=== PATIENT | female | born 1950 | race Caucasian/White ===

== ENCOUNTER 2016-08-30 23:21 | Emergency (ER) | payer MEDICARE, OTHER ==
[~2016-08-30] VITALS: Ht 160 cm; Wt 75.0 kg
[~2016-08-30 23:21] MED LIST: CLON0.5T PO; HYDR-3133 PO; HYDR-3516 PO; MELA5TAB15 PO; NEUR100C PO; PROZ40CA PO
[2016-08-30 23:27] VITALS: BP 148/65; PULSE 66; RESP 18; TEMP 97.9; O2SAT 95
[2016-08-30] MEDS ORDERED: SODIUM CHLORIDE 0.9% FLUSH 5 ML FLUSH IVF PRN (23:30)
[2016-08-30 23:42] VITALS: O2SAT 95
[2016-08-30 23:50] LABS: AUTOMATED NEUTROPHIL # 2.9 TH/MM3 (1.8-7.7); BASOPHIL # 0.1 TH/MM3 (0-0.2); BASOPHIL % 0.9 % (0.0-2.0); EOSINOPHIL # 0.2 TH/MM3 (0-0.4); HEMATOCRIT 34.6 % (35.0-46.0); HEMO FLAGS DIFF FINAL; LYMPH % 43.6 % (9.0-44.0); MEAN CELL VOLUME 90.7 FL (80.0-100.0); MEAN CORPUSCULAR HEMOGLOBIN 30.7 PG (27.0-34.0); MEAN CORPUSCULAR HGB CONC 33.8 % (32.0-36.0); MONO % 10.3 % (0.0-8.0); NEUT % 42.2 % (16.0-70.0); PLATELET COUNT 403 TH/MM3 (150-450); RED BLOOD COUNT 3.81 MIL/MM3 (4.00-5.30); RED CELL DISTRIBUTION WIDTH 15.9 % (11.6-17.2); WHITE BLOOD COUNT 6.9 TH/MM3 (4.0-11.0)
--- NOTE | 2016-08-31 00:01 | RADRPT ---
EXAM DATE/TIME: 08/30/2016 23:50 [facility] COMPARISON: CT BRAIN W/O CONTRAST, February 25, 2016, 9:42. INDICATIONS : Trauma; fall. RADIATION DOSE: 38.55 CTDIvol (mGy) MEDICAL HISTORY : Cardiovascular disease. Seizures. SURGICAL HISTORY : Appendectomy. Cholecystectomy.Tonsillectomy. ENCOUNTER: Initial ACUITY: 1 week PAIN SCALE: 2/10 LOCATION: cranial TECHNIQUE: Multiple contiguous axial images were obtained of the head. Using automated exposure control and adj ustment of the mA and/or kV according to patient size, radiation dose was kept as low as reasonably a chievable to obtain optimal diagnostic quality images. FINDINGS: CEREBRUM: There is mild cerebral atrophy. Ventricles are normal in size. No evidence of midline shift, mass le scott, hemorrhage or acute infarction. No extra-axial fluid collections are seen. POSTERIOR FOSSA: The cerebellum and brainstem demonstrate no acute finding. The 4th ventricle is midline. The cerebe llopontine angle is unremarkable. EXTRACRANIAL: Visualized sinuses demonstrate no acute finding. SKULL: The calvaria is intact. No evidence of skull fracture. CONCLUSION: Stable noncontrast head CT. No acute intracranial abnormality is identified. Anders Kimball MD on August 30, 2016 at 23:57 Board Certified Radiologist. This report was verified electronically.
--- NOTE | 2016-08-31 00:02 | RADRPT ---
EXAM DATE/TIME: 08/30/2016 23:44 [facility] COMPARISON: CHEST SINGLE AP, March 03, 2013, 3:47. INDICATIONS : Shortness of breath. MEDICAL HISTORY : None. SURGICAL HISTORY : Splenectomy. Appendectomy. ENCOUNTER: Initial ACUITY: 1 day PAIN SCORE: 0/10 LOCATION: Bilateral chest FINDINGS: Portable AP view of the chest demonstrates a normal-sized cardiac silhouette. No effusion, consolidat ion, or pneumothorax is visualized. The bones and soft tissues demonstrate no acute abnormality. The lungs are underinflated with atelectasis at the bases. CONCLUSION: Underinflated examination with mild atelectasis at the bases. Otherwise, no acute finding is apprecia sade. Anders Kimball MD on August 31, 2016 at 0:00 Board Certified Radiologist. This report was verified electronically.
--- NOTE | 2016-08-31 00:04 | RADRPT ---
EXAM DATE/TIME: 08/30/2016 23:47 [facility] COMPARISON: No previous studies available for comparison. INDICATIONS : Right flank and proximal femur pain from trauma sustained in a fall. MEDICAL HISTORY : None. SURGICAL HISTORY : Splenectomy. Appendectomy. ENCOUNTER: Initial ACUITY: 1 day PAIN SCORE: 10/10 LOCATION: Right flank FINDINGS: AP view of the pelvis demonstrates no acute fracture or dislocation. There are changes in the left pu bic bone suggestive of old healed fractures. Hip joints demonstrate no significant arthropathy. There are degenerative changes in the visualized inferior lumbar spine. No soft tissue abnormality is iden tified. CONCLUSION: No acute pelvis abnormality is identified. There are changes suggestive of old healed fractures in th e left pubic bone and there are degenerative changes in the visualized inferior lumbar spine. Anders Kimball MD on August 31, 2016 at 0:01 Board Certified Radiologist. This report was verified electronically.
[2016-08-31 00:06] LABS: BLOOD, URINE NEG (NEG); GLUCOSE,URINE NEG (NEG); KETONE, URINE NEG (NEG); NITRITE,URINE NEG (NEG); SQUAMOUS EPITHELIAL CELL URINE <1 /hpf (0-5); URINE COLOR LIGHT-YELLOW (YELLW/STRAW)
[2016-08-31 00:09] LABS: COMMENT (UR) CULT NOT INDICATED; CULTURE IF INDICATED CULT NOT INDICATED
[2016-08-31] MEDS ORDERED: KETOROLAC TROMETHAMINE 60 MG/2 ML (IM) VIAL IM ONE (00:15)
[2016-08-31 00:17] LABS: APTT (PATIENT) 24.9 SEC (24.3-30.1); PROTHROMBIN TIME - PATIENT 11.3 SEC (9.8-11.6)
[2016-08-31 00:44] LABS: POTASSIUM 5.5 MEQ/L (3.5-5.1)
[2016-08-31] MEDS ORDERED: MECLIZINE HCL 25 MG TAB PO ONE (01:00)
--- NOTE | 2016-08-31 01:01 | PD ---
HPI Chief Complaint: Fall Time Seen by Provider: 23:25 Travel History International Travel<30 days: No Contact w/Intl Traveler<30days: No Traveled to known affect area: No History of Present Illness HPI 66-year-old female presents with dizziness and leaning against the closet door and it giving out from her. She notes pain to her upper hip area on the right and had told the ambulance team she hurt on the other side as well. She states that she may have hit her head but she's not sure. She states she did not black out. She denies other concurrent complaints. In route the patient had told the ambulance team she was having a seizure but they had stated that she was not having any seizure activity during that time. Quality of pain is stabbing. Severity is moderate. Pain is worse with movement. She denies other modifying factors. PFSH Past Medical History Anxiety: Yes Depression: Yes Cancer: No Cardiovascular Problems: Yes Diminished Hearing: No Gastrointestinal Disorders: Yes Genitourinary: Yes Herniated Disk: Yes ("DEGENERATIVE DISC DISEASE") Musculoskeletal: Yes (HX SCIATICA, FX PELVIS: 1974) Neurologic: Yes Psychiatric: No Reproductive: No Respiratory: No Immunizations Current: Yes Seizures: Yes (PSYCHOGENIC ) Tetanus Vaccination: Unknown Influenza Vaccination: No ?: Not Menopausal: Yes : 2 Para: 2 Past Surgical History Abdominal Surgery: Yes Appendectomy: Yes Cholecystectomy: Yes Genitourinary Surgery: Yes (SURGERY FOR KIDNEY "BLOCKAGE") Oral Surgery: Yes (TONSILLECTOMY) Tonsillectomy: Yes Other Surgery: Yes ([place] SIDE FAC[place] [facility] [place] Social History Alcohol Use: Yes (RARELY) Tobacco Use: No (NEVER) Substance Use: No (DENIES) Allergies-Medications (Allergen,Severity, Reaction): Coded Allergies: Amoxil (Verified Allergy, Severe, GI PAIN, 08/30/16) Depakote (Verified Allergy, Severe, RASH/HIVES, 08/30/16) Reported Meds & Prescriptions Reported Meds & Active Scripts Active Meclizine (Meclizine HCl) 12.5 Mg Tab 12.5 Mg PO BID PRN Hydroxyzine HCl 25 Mg Tab 25 Mg PO QID PRN Prozac (Fluoxetine HCl) 40 Mg Cap 60 Cap PO DAILY Reported Melatonin 5 Mg Tab 5 Mg PO HS Hydrocodone-Acetaminophen 5-325 mg Tab 1 Tab PO TID PRN Clonazepam 0.5 Mg Tab 0.5 Mg PO HS Neurontin (Gabapentin) 100 Mg Cap 200 Mg PO QID Review of Systems Except as stated in HPI: all other systems reviewed are Neg Physical Exam Narrative GENERAL: Well-nourished, well-developed patient. SKIN: Warm and dry. HEAD: Normocephalic and atraumatic. EYES: No injection or drainage. ENT: No nasal drainage noted. NECK: Supple, trachea midline. CARDIOVASCULAR: Regular rate and rhythm RESPIRATORY: Breath sounds equal bilaterally. No accessory muscle use. GASTROINTESTINAL: Abdomen soft, non-tender, nondistended. EXTREMITIES: Pain with palpation of right upper without deformity or shortening , no pain with other joints , neurovascularly intact, no lacerations over, compartments soft. BACK: Nontender without obvious deformity. NEUROLOGICAL: Awake and alert. Moves all extremities, sensory grossly within normal limits. Normal speech. Data Data Last Documented VS Vital Signs Date Time Temp Pulse Resp B/P Pulse Ox O2 Delivery O2 Flow Rate FiO2 08/31/16 01:40 69 18 137/78 99 Room Air 08/30/16 23:27 97.9 Orders Basic Metabolic Panel (Bmp) (08/30/16 23:30) Complete Blood Count With Diff (08/30/16 23:30) Prothrombin Time / Inr (Pt) (08/30/16 23:30) Act Partial Throm Time (Ptt) (08/30/16 23:30) Urinalysis - C+S If Indicated (08/30/16 23:30) Chest, Single Ap (08/30/16 23:30) Pelvis, Ap Only (Routine) (08/30/16 23:30) Ct Brain W/O Iv Contrast(Rout) (08/30/16 23:30) Iv Access Insert/Monitor (08/30/16 23:30) Ecg Monitoring (08/30/16 23:30) Oximetry (08/30/16 23:30) Sodium Chloride 0.9% Flush (Ns Flush) (08/30/16 23:30) Ketorolac Inj (Toradol Inj) (08/31/16 00:15) Meclizine (Antivert) (08/31/16 01:00) Labs Laboratory Tests Test 08/30/16 23:40 White Blood Count 6.9 TH/MM3 Red Blood Count 3.81 MIL/MM3 Hemoglobin 11.7 GM/DL Hematocrit 34.6 % Mean Corpuscular Volume 90.7 FL Mean Corpuscular Hemoglobin 30.7 PG Mean Corpuscular Hemoglobin 33.8 % Concent Red Cell Distribution Width 15.9 % Platelet Count 403 TH/MM3 Mean Platelet Volume 8.5 FL Neutrophils (%) (Auto) 42.2 % Lymphocytes (%) (Auto) 43.6 % Monocytes (%) (Auto) 10.3 % Eosinophils (%) (Auto) 3.0 % Basophils (%) (Auto) 0.9 % Neutrophils # (Auto) 2.9 TH/MM3 Lymphocytes # (Auto) 3.0 TH/MM3 Monocytes # (Auto) 0.7 TH/MM3 Eosinophils # (Auto) 0.2 TH/MM3 Basophils # (Auto) 0.1 TH/MM3 CBC Comment DIFF FINAL Differential Comment Prothrombin Time 11.3 SEC Prothromb Time International 1.0 RATIO Ratio Activated Partial 24.9 SEC Thromboplast Time Urine Color LIGHT-YELLOW Urine Turbidity CLEAR Urine pH 8.0 Urine Specific [place] 1.005 Urine Protein NEG mg/dL Urine Glucose (UA) NEG mg/dL Urine Ketones NEG mg/dL Urine Occult Blood NEG Urine Nitrite NEG Urine Bilirubin NEG Urine Urobilinogen LESS THAN 2.0 MG/DL Urine Leukocyte Esterase NEG Urine RBC LESS THAN 1 /hpf Urine WBC LESS THAN 1 /hpf Urine Squamous Epithelial <1 /hpf Cells Microscopic Urinalysis Comment CULT NOT INDICATED Sodium Level 143 MEQ/L Potassium Level 5.5 MEQ/L Chloride Level 106 MEQ/L Carbon Dioxide Level 33.0 MEQ/L Anion Gap 4 MEQ/L Blood Urea Nitrogen 6 MG/DL Creatinine 1.02 MG/DL Estimat Glomerular Filtration 54 ML/MIN Rate Random Glucose 88 MG/DL Calcium Level 8.4 MG/DL [facility] Medical Decision Making Medical Screen Exam Complete: Yes Emergency Medical Condition: Yes Medical Record Reviewed: Yes (past history confirmed) Interpretation(s) CBC & BMP Diagram 08/30/16 23:40 CT brain no bleed, pelvic x-ray no fracture Differential Diagnosis Anemia, renal failure, intracranial, fracture, strain, vertigo, UTI, electrolyte abnormality..... Narrative Course Will check blood work, UA, trauma imaging and reevaluate Patient lives at home by herself and needs assistance with 2 people to walk and her cane and states she is feeling dizzy. Will dose with meclizine and reevaluate Patient denies any new complaints and states that they are feeling better and able to ambulate on second attempt without assistance. Patient happy with care , all questions answered. Patient knows that follow up is incumbent on them and to return to the emergency room immediately if new or worsening symptoms develop. Patient given strict return precautions, vitals reviewed and are normal , agrees to further workup as an outpatient. Diagnosis Primary Impression: Dizziness Additional Impression: Fall Qualified Code: W19.XXXA - Fall, initial encounter Patient Instructions: General Instructions Additional Instructions: return as needed, follow with primary thursday, meclizine as needed Med/Other Pt SpecificInfo: Prescription(s) given Scripts Meclizine 12.5 Mg Tab12.5 Mg PO BID PRN (VERTIGO) #15 TAB Ref 0 Prov:Leah Barriga MD 08/31/16 Disposition: 01 DISCHARGE HOME Condition: Serious Leah Barriga MD Aug 31, 2016 01:01
[2016-08-31] MEDS ORDERED: MECL12.574 PO (01:35)
[2016-08-31 01:40] VITALS: BP 137/78; PULSE 69; RESP 18; O2SAT 99
== END 2016-08-31 02:30 | disposition home or self-care (01) ==
LOC: NEPC 23:21
DX: R42 Dizziness and giddiness (principal); M25.551 Pain in right hip; W19.XXXA Unspecified fall, initial encounter
CPT/HCPCS: 70450; 71010; 72170; 80048; 81001; 85025; 85610; 85730; 96372; 99284; J1885

== ENCOUNTER 2016-09-19 15:51 | Emergency (ER) | payer OTHER ==
[~2016-09-19] VITALS: Ht 157.5 cm; Wt 72.0 kg
[~2016-09-19 15:51] MED LIST changes: +MECL12.574 PO
[2016-09-19 15:53] VITALS: BP 160/86; PULSE 60; RESP 16; TEMP 97.7; O2SAT 95
--- NOTE | 2016-09-19 17:38 | PD ---
HPI Chief Complaint: Pain: Acute or Chronic Time Seen by Provider: 17:35 Travel History International Travel<30 days: No Contact w/Intl Traveler<30days: No Traveled to known affect area: No History of Present Illness HPI Patient comes in for evaluation of right-sided sciatica pain. Patient reports pain has been ongoing for approximately 3 months. Patient states pain management was prescribed hydrocodone that is not controlling her pain. Patient denies any fevers, loss or change in bowel or bladder, numbness or tingling anywhere, trauma, or IV drug use. Patient states she was seen here previously for this and was given a shot of Toradol that seemed to help her symptoms somewhat but only lasted for a short time. PFSH Past Medical History Anxiety: Yes Depression: Yes Cancer: No Cardiovascular Problems: Yes Diminished Hearing: No Gastrointestinal Disorders: Yes Genitourinary: Yes Herniated Disk: Yes ("DEGENERATIVE DISC DISEASE") Musculoskeletal: Yes (HX SCIATICA, FX PELVIS: 1974) Neurologic: Yes Psychiatric: No Reproductive: No Respiratory: No Immunizations Current: Yes Seizures: Yes (PSYCHOGENIC ) Menopausal: Yes : 2 Para: 2 Past Surgical History Abdominal Surgery: Yes Appendectomy: Yes Cholecystectomy: Yes Genitourinary Surgery: Yes (SURGERY FOR KIDNEY "BLOCKAGE") Oral Surgery: Yes (TONSILLECTOMY) Tonsillectomy: Yes Other Surgery: Yes (LEFT SIDE FACIAL SURGERY: RECON[place]CTION S/P [facility] [place]: 1974) Social History Alcohol Use: Yes (RARELY) Tobacco Use: No (NEVER) Substance Use: No (DENIES) Allergies-Medications (Allergen,Severity, Reaction): Coded Allergies: Amoxil (Verified Allergy, Severe, GI PAIN, 09/19/16) Depakote (Verified Allergy, Severe, RASH/HIVES, 09/19/16) Reported Meds & Prescriptions Reported Meds & Active Scripts Active Medrol Dosepak (Methylprednisolone) 4 Mg Dspk 4 Mg PO DIRECTED Per Pharmacist direction Meclizine (Meclizine HCl) 12.5 Mg Tab 12.5 Mg PO BID PRN Hydroxyzine HCl 25 Mg Tab 25 Mg PO QID PRN Prozac (Fluoxetine HCl) 40 Mg Cap 60 Cap PO DAILY Reported Melatonin 5 Mg Tab 5 Mg PO HS Hydrocodone-Acetaminophen 5-325 mg Tab 1 Tab PO TID PRN Clonazepam 0.5 Mg Tab 0.5 Mg PO HS Neurontin (Gabapentin) 100 Mg Cap 200 Mg PO QID Review of Systems Except as stated in HPI: all other systems reviewed are Neg Physical Exam Narrative GENERAL: Well-developed, overly nourished, in no acute distress, and non-ill appearing. SKIN: Warm and dry. HEAD: Atraumatic. Normocephalic. EYES: Pupils equal and round. EOMI. No scleral icterus. No injection or drainage. ENT: No nasal bleeding or discharge. Mucous membranes pink and moist. NECK: Trachea midline. Supple. No nuclear rigidity. CARDIOVASCULAR: Dorsal pulses 2+: Tach, and equal bilaterally. Capillary refill less than 2 seconds. No pedal edema. RESPIRATORY: No accessory muscle use. No respiratory distress. MUSCULOSKELETAL: No obvious deformities. No clubbing. No cyanosis. No edema. Full range of motion. Hip: FROM and equal BL with passive flexion, extension, Abduction, Adduction, and internal/external rotation. Pulses equal BL distal to injury. Capillary refill less than 2 seconds distal to injury and equal BL. FROM distal to injury and equal BL. Strength distal to injury equal BL. NV intact distal to injury and equal BL. Plantar flexion and dorsal flexion equal BL. Dorsal pulses equal BL. Sensation intact to her first web space bilateral lower extremities. Patient reports increased pain with passive external rotation. NEUROLOGICAL: Awake and alert. No obvious cranial nerve deficits. Motor grossly within normal limits. Normal speech. PSYCHIATRIC: Appropriate mood and affect; insight and judgment normal. Data Data Last Documented VS Vital Signs Date Time Temp Pulse Resp B/P Pulse Ox O2 Delivery O2 Flow Rate FiO2 09/19/16 15:53 97.7 60 16 160/86 95 Orders Ketorolac Inj (Toradol Inj) (09/19/16 17:45) Dexamethasone Inj (Decadron Inj) (09/19/16 17:45) [facility] Medical Decision Making Medical Screen Exam Complete: Yes Emergency Medical Condition: No Differential Diagnosis Fracture, strain, sciatica, other Narrative Course The patient presented complaining of back pain with radiation down leg. There was no history of recent fall or trauma. There was no evidence to support genitourinary etiology. There is also no evidence to suggest vascular pathology such as AAA dissection. No fevers or other evidence to suspect infectious processes, abscess, osteomyelitis etc. The patients neurological exam is normal with normal motor and sensory. There is no saddle paresthesias reported and no bowel or bladder incontinence or retention. I suspect the pain is mechanical in nature with sciatica. Clinical suspicion, plan of care and management was discussed with the patient. The patient was instructed to follow up with their health care provider. The patient was also instructed to return if the pain worsened, changed, or developed weakness or bowel or bladder trouble. The patient agreed with plan. Patient in no obvious distress upon re-evaluation. Patient was asked if they wanted to speak to my attending, which the patient did not wish to do at this time. Any questions/concerns in reference to patient diagnosis/condition discussed and clarified prior to patient's discharge. Reinforced sheer importance of close follow up with patient's primary physician or primary care clinic. Instructed patient to return to ED immediately, if symptoms return/ worsen. Pt showed understanding of above instructions. Further instructions and recommendations were detailed in discharge paperwork. Pt ambulated without difficulty out of ED at discharge. Diagnosis Primary Impression: Sciatica of right side Patient Instructions: General Instructions, Sciatica (ED) Additional Instructions: Follow-up with your primary care physician, orthopedics, and/or pain management doctor in 3-5 days for reevaluation. Take all medication as prescribed. Return to the emergency department if symptoms get worse. Med/Other Pt SpecificInfo: Prescription(s) given Scripts Methylprednisolone Dosepak (Medrol Dosepak)4 Mg Dspk4 Mg PO DIRECTED #1 DSPK Ref 0 Per Pharmacist direction Prov:Pilar Lewis MD 09/19/16 Disposition: 01 DISCHARGE HOME Condition: Stable Tio Charles Sep 19, 2016 17:38
[2016-09-19] MEDS ORDERED: MEDR4PAK PO (17:39)
[2016-09-19] MEDS ORDERED: KETOROLAC TROMETHAMINE 60 MG/2 ML (IM) VIAL IM ONE (17:45)
[2016-09-19] MEDS ORDERED: DEXAMETHASONE SOD PHOS 4 MG/ML VIAL IM ONE (17:45)
== END 2016-09-19 18:01 | disposition home or self-care (01) ==
LOC: NEPB 15:51
DX: M54.31 Sciatica, right side (principal)
CPT/HCPCS: 96372; 99283; J1100; J1885

== ENCOUNTER 2016-11-22 03:57 | Emergency (ER) | payer OTHER ==
[~2016-11-22] VITALS: Ht 154.9 cm; Wt 74.1 kg
[~2016-11-22 03:57] MED LIST changes: +MEDR4PAK PO
[2016-11-22 04:06] VITALS: BP 158/85; PULSE 57; RESP 12; TEMP 98.3; O2SAT 92
--- NOTE | 2016-11-22 05:01 | PD ---
HPI Chief Complaint: Musculoskeletal Complaint Time Seen by Provider: 04:50 Travel History International Travel<30 days: No Contact w/Intl Traveler<30days: No Traveled to known affect area: No History of Present Illness HPI The patient is a 66-year-old female that has chronic back pain and is on disability for chronic back pain who comes in today wanting something for the pain. She states the pain goes down the right leg. She has had this pain for 5 -10 years. She was followed by Dr. Seals for this but apparently Dr. Seals, according to the patient, left a because he said dated she faked a seizure and told her not to do that anymore. The patient has a history of sciatic nerve pain. She took 400 mg of ibuprofen last night. She has no one to drive her home, she had planned to take a cab. She denies any bladder or bowel dysfunction. She denies any history or recent trauma. PFSH Past Medical History Anxiety: Yes Depression: Yes Cancer: No Cardiovascular Problems: Yes Diminished Hearing: No Gastrointestinal Disorders: Yes Genitourinary: Yes Herniated Disk: Yes ("DEGENERATIVE DISC DISEASE") Musculoskeletal: Yes (HX SCIATICA, FX PELVIS: 1974) Neurologic: Yes Psychiatric: No Reproductive: No Respiratory: No Immunizations Current: No Seizures: Yes (PSYCHOGENIC ) Tetanus Vaccination: Unknown Influenza Vaccination: No ?: Not Menopausal: Yes : 2 Para: 2 Past Surgical History Abdominal Surgery: Yes Appendectomy: Yes Cholecystectomy: Yes Genitourinary Surgery: Yes (SURGERY FOR KIDNEY "BLOCKAGE") Oral Surgery: Yes (TONSILLECTOMY) Tonsillectomy: Yes Other Surgery: Yes ([place] SIDE FACIAL [place] [facility] [place] Social History Alcohol Use: Yes (DRINKS WINE OCCASIONALLY) Tobacco Use: No (NEVER) Substance Use: No (DENIES) Allergies-Medications (Allergen,Severity, Reaction): Coded Allergies: Amoxil (Verified Allergy, Severe, GI PAIN, 11/22/16) Depakote (Verified Allergy, Severe, RASH/HIVES, 11/22/16) Reported Meds & Prescriptions Reported Meds & Active Scripts Active Meclizine (Meclizine HCl) 12.5 Mg Tab 12.5 Mg PO BID PRN Hydroxyzine HCl 25 Mg Tab 25 Mg PO QID PRN Prozac (Fluoxetine HCl) 40 Mg Cap 60 Cap PO DAILY Reported Melatonin 5 Mg Tab 5 Mg PO HS Hydrocodone-Acetaminophen 5-325 mg Tab 1 Tab PO TID PRN Clonazepam 0.5 Mg Tab 0.5 Mg PO HS Neurontin (Gabapentin) 100 Mg Cap 200 Mg PO QID Review of Systems Except as stated in HPI: all other systems reviewed are Neg Physical Exam Narrative GENERAL: Well-nourished, alert and oriented, obese patient in slight apparent distress with her chronic back pain. Her vital signs show blood pressure 158/ 85 but are otherwise normal. SKIN: Focused skin assessment warm/dry. HEAD: Normocephalic. EYES: No scleral icterus. No injection or drainage. NECK: Supple, trachea midline. No JVD or lymphadenopathy. CARDIOVASCULAR: Regular rate and rhythm without murmurs, gallops, or rubs. RESPIRATORY: Breath sounds equal bilaterally. No accessory muscle use. GASTROINTESTINAL: Abdomen soft, non-tender, nondistended. MUSCULOSKELETAL: No cyanosis, or edema. There is tenderness along the lumbar spine diffusely and on the right side of the lumbar spine. Straight leg raising is positive at 25. Deep tendon reflexes are +1 bilaterally both patella Achilles. Pinprick is normal. BACK: Nontender without obvious deformity. No CVA tenderness. Data Data Last Documented VS Vital Signs Date Time Temp Pulse Resp B/P Pulse Ox O2 Delivery O2 Flow Rate FiO2 11/22/16 04:06 98.3 57 12 158/85 92 MDM Medical Decision Making Medical Screen Exam Complete: Yes Emergency Medical Condition: Yes Medical Record Reviewed: Yes Differential Diagnosis Herniated nucleus pulposus, sciatic nerve pain, compression fracture Narrative Course The patient has chronic sciatic nerve pain. Unfortunately, we cannot give her any narcotics because she has no way to go home other than a cab. The patient claims that she gets seizures with the pain. She is told to follow-up with Dr. Seals. Diagnosis Primary Impression: Sciatica of right side Additional Instructions: Follow-up with Dr. Seals. He can give you pain medications because he can follow you. Med/Other Pt SpecificInfo: No Change to Meds Disposition: 01 DISCHARGE HOME Condition: Stable Jose Castro MD Nov 22, 2016 05:01
[2016-11-22] MEDS ORDERED: ORPHENADRINE INJ 60 MG/2 ML AMP IM ONE (05:15)
[2016-11-22] MEDS ORDERED: KETOROLAC TROMETHAMINE 60 MG/2 ML (IM) VIAL IM ONE (05:15)
== END 2016-11-22 05:19 | disposition home or self-care (01) ==
LOC: PHED 03:57
DX: M54.31 Sciatica, right side (principal)
CPT/HCPCS: 96372; 99283; J1885; J2360

== ENCOUNTER 2017-02-02 13:55 | Emergency (ER) | payer OTHER ==
[~2017-02-02] VITALS: Ht 157.5 cm; Wt 70.0 kg
[~2017-02-02 13:55] MED LIST changes: -MEDR4PAK PO
[2017-02-02 14:02] VITALS: BP 153/65; PULSE 64; RESP 18; TEMP 98; O2SAT 95
[2017-02-02] MEDS ORDERED: ACETAMINOPHEN/HYDROcodone 325 MG/5 MG TAB PO ONE (14:15)
[2017-02-02] MEDS ORDERED: ORPHENADRINE CITRATE 100 MG SUSTAINED RELEASE TAB PO ONE (14:15)
[2017-02-02] MEDS ORDERED: IBUPROFEN 400 MG TAB PO ONE (14:15)
[2017-02-02] MEDS ORDERED: NORC5TAB PO (14:22)
[2017-02-02] MEDS ORDERED: ORPH100T99 PO (14:22)
[2017-02-02] MEDS ORDERED: IBUP400T20 PO (14:22)
--- NOTE | 2017-02-02 14:22 | PD ---
HPI Chief Complaint: Pain: Acute or Chronic Time Seen by Provider: 14:00 Travel History International Travel<30 days: No Contact w/Intl Traveler<30days: No Traveled to known affect area: No History of Present Illness HPI The patient is a 66-year-old female who presents to the emergency department for back pain with radiculopathy. The patient has a long-standing history of sciatica with back pain that radiates down to the right gluteal area and down the right leg to the heel, has been present for over one year. The patient was being followed by her pain interventional list and primary physician , Dr. Seals. However, she states she knows longer sees Arnel because she was "laughing at her "after she had a pseudoseizure in the office. The patient does complain of pain located in the right gluteal area that radiates down the right leg, worse with certain movements and positions, alleviated at rest and by lying supine or on the left side with her legs flexed. She denies any urinary or fecal incontinence, denies any acute weakness or numbness of lower extremities. The patient states her family resides in [place] and they called the ambulance today because she was having pain at home and refuses to see a physician. The patient does not currently have a primary physician and states she has to take the bus everywhere for transportation. PFSH Past Medical History Anxiety: Yes Depression: Yes Cancer: No Cardiovascular Problems: Yes Diminished Hearing: No Gastrointestinal Disorders: Yes Genitourinary: Yes Herniated Disk: Yes ("DEGENERATIVE DISC DISEASE") Musculoskeletal: Yes (HX SCIATICA, FX PELVIS: 1974) Neurologic: Yes Psychiatric: No Reproductive: No Respiratory: No Immunizations Current: No Seizures: Yes (PSYCHOGENIC ) ?: Not Menopausal: Yes : 2 Para: 2 Past Surgical History Abdominal Surgery: Yes Appendectomy: Yes Cholecystectomy: Yes Genitourinary Surgery: Yes (SURGERY FOR KIDNEY "BLOCKAGE") Oral Surgery: Yes (TONSILLECTOMY) Tonsillectomy: Yes Other Surgery: Yes (LEFT SIDE FACIAL SURGERY: [place] [facility] [place]) Social History Alcohol Use: Yes (DRINKS WINE OCCASIONALLY) Tobacco Use: No (NEVER) Substance Use: No (DENIES) Allergies-Medications (Allergen,Severity, Reaction): Coded Allergies: Amoxil (Verified Allergy, Severe, GI PAIN, 02/02/17) Depakote (Verified Allergy, Severe, RASH/HIVES, 02/02/17) Reported Meds & Prescriptions Reported Meds & Active Scripts Active Reported Neurontin (Gabapentin) 100 Mg Cap 600 Mg PO QID Review of Systems Except as stated in HPI: all other systems reviewed are Neg Cardiovascular: No: Chest Pain or Discomfort Respiratory: No: Shortness of Breath Gastrointestinal: No: Nausea, Vomiting Musculoskeletal: Positive: Pain Skin: No Rash Neurologic: No: Paresthesia, Sensory Disturbance Physical Exam Narrative GENERAL: Awake, alert, pleasant 66-year-old female who appears her stated age is in no acute respiratory distress. SKIN: Focused skin assessment warm/dry. HEAD: Atraumatic. Normocephalic. EYES: Pupils equal and round. No scleral icterus. No injection or drainage. ENT: No nasal bleeding or discharge. Poor dentition. NECK: Trachea midline. No JVD. CARDIOVASCULAR: Regular rate and rhythm. No murmur appreciated. RESPIRATORY: No accessory muscle use. Clear to auscultation. Breath sounds equal bilaterally. GASTROINTESTINAL: Abdomen soft, non-tender, nondistended. Back: No tenderness over the mid thoracic or lumbar vertebrae. Mild tenderness of the right gluteal area, patient was examined in the presence of a female nurse. MUSCULOSKELETAL: No obvious deformities. No clubbing. No cyanosis. No edema. Positive straight leg on the right at 30. Flexion of the hip and knee improves the pain. Plantar flexion is 5 out of 5 bilateral, flexion right great toes 5/5, and flexion the right hip is 5/5. Positive right dorsalis pedal pulse. NEUROLOGICAL: Awake and alert. No obvious cranial nerve deficits. Motor grossly within normal limits. Normal speech. Sensation is intact of the medial , lateral, dorsal aspect of the right foot. PSYCHIATRIC: Appropriate mood and affect; insight and judgment normal. Data Data Last Documented VS Vital Signs Date Time Temp Pulse Resp B/P Pulse Ox O2 Delivery O2 Flow Rate FiO2 02/02/17 14:02 98.0 64 18 153/65 95 Orders Acetamin-Hydrocod 325-5 Mg ([place] 5-325 (02/02/17 14:15) Ibuprofen (Motrin) (02/02/17 14:15) Orphenadrine Sr (Norflex Cr) (02/02/17 14:15) MDM Medical Decision Making Medical Screen Exam Complete: Yes Emergency Medical Condition: Yes Medical Record Reviewed: Yes Differential Diagnosis Differential diagnosis includes sciatica, back pain with radiculopathy, degenerative disc disease, herniated disc, osteoarthritis, Narrative Course The patient was administered [place], Norflex, and ibuprofen. She will be discharged home on medications, is advised to follow-up with her primary physician, she is also advised she may benefit from outpatient physical therapy in regards to her sciatica. Diagnosis Primary Impression: Sciatica of right side Patient Instructions: General Instructions Additional Instructions: Medications as directed. Follow-up with a primary physician in regards to outpatient physical therapy for chronic right sciatica. Apply ice and/or heat to the affected area. Activity as tolerated. Med/Other Pt SpecificInfo: Prescription(s) given Scripts Hydrocodone-Acetaminophen ([place])5-325 mg Tab1 Tab PO Q6H PRN (PAIN) #12 TAB Ref 0 Prov:Bryan Hernandez MD 02/02/17 Orphenadrine ER 12 HR (Orphenadrine CR)100 Mg Hzw450 Mg PO Q12HR #20 TAB Ref 0 Prov:Bryan Hernandez MD 02/02/17 Ibuprofen 400 Mg [id number] Mg PO Q6H PRN (PAIN SCALE 1 TO 10) #20 TAB Ref 0 Prov:Bryan Hernandez MD 02/02/17 Disposition: 01 DISCHARGE HOME Condition: Stable Bryan Hernandez MD Feb 02, 2017 14:22
[2017-02-02 15:11] VITALS: BP 158/80; PULSE 58; RESP 16; O2SAT 96
== END 2017-02-02 15:12 | disposition home or self-care (01) ==
LOC: PHED 13:55
DX: M54.31 Sciatica, right side (principal); Z86.59 Personal history of other mental and behavioral disorders; Z86.79 Personal history of other diseases of the circulatory system; Z87.19 Personal history of other diseases of the digestive system; Z87.448 Personal history of other diseases of urinary system; Z87.39 Personal history of other diseases of the musculoskeletal system and connective tissue; Z86.69 Personal history of other diseases of the nervous system and sense organs
CPT/HCPCS: 99284

== ENCOUNTER 2017-03-16 22:51 | Emergency (ER) | payer MEDICAID, OTHER ==
[~2017-03-16] VITALS: Ht 157.5 cm; Wt 70.4 kg
[2017-03-16 22:51] VITALS: BP 182/71; PULSE 60; RESP 16; TEMP 97.4; O2SAT 96
[~2017-03-16 22:51] MED LIST changes: -CLON0.5T PO; -HYDR-3133 PO; -HYDR-3516 PO; +IBUP400T20 PO; -MECL12.574 PO; -MELA5TAB15 PO; +NORC5TAB PO; +ORPH100T99 PO; -PROZ40CA PO
[2017-03-16] MEDS ORDERED: SODIUM CHLOR 0.9% 1000 ML INJ 1,000 ML IV SCH (23:24)
[2017-03-16] MEDS ORDERED: SODIUM CHLORIDE 0.9% FLUSH 10 ML FLUSH IV FLUSH PRN (23:30)
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
[2017-03-16 23:47] LABS: BLOOD, URINE NEG (NEG); GLUCOSE,URINE NEG (NEG); KETONE, URINE TRACE mg/dL (NEG); NITRITE,URINE NEG (NEG); PH, URINE 5.5 (5.0-8.5)
[2017-03-16 23:47] LABS: AUTOMATED NEUTROPHIL # 2.7 TH/MM3 (1.8-7.7); BASOPHIL # 0.1 TH/MM3 (0-0.2); BASOPHIL % 1.4 % (0.0-2.0); EOSINOPHIL # 0.1 TH/MM3 (0-0.4); EOSINOPHIL % 1.5 % (0.0-4.0); HEMO FLAGS DIFF FINAL; LYMPH % 51.1 % (9.0-44.0); LYMPHOCYTE # 3.7 TH/MM3 (1.0-4.8); MEAN CORPUSCULAR HEMOGLOBIN 31.8 PG (27.0-34.0); MEAN CORPUSCULAR HGB CONC 32.4 % (32.0-36.0); MONO % 9.3 % (0.0-8.0); NEUT % 36.7 % (16.0-70.0); PLATELET COUNT 414 TH/MM3 (150-450); RED BLOOD COUNT 4.18 MIL/MM3 (4.00-5.30); RED CELL DISTRIBUTION WIDTH 14.1 % (11.6-17.2); WHITE BLOOD COUNT 7.3 TH/MM3 (4.0-11.0)
[2017-03-16 23:55] LABS: MUCUS URINE MOD /lpf (OCC); URINE COLOR AMBER (YELLW/STRAW)
[2017-03-16 23:56] LABS: BACTERIA, URINE FEW /hpf; CALCIUM OXALATE CRYSTALS,URINE FEW /hpf; RBC, URINE 0-3 /hpf (0-3); SQUAMOUS EPITHELIAL CELL URINE > 8 /hpf (0-5)
[2017-03-16 23:57] LABS: COMMENT (UR) CULT NOT INDICATED; CULTURE IF INDICATED CULT NOT INDICATED
[2017-03-16 23:57] LABS: CHLORIDE 104 MEQ/L (98-107); POTASSIUM 3.7 MEQ/L (3.5-5.1); SODIUM (NA) 140 MEQ/L (136-145)
[2017-03-17 00:01] LABS: ANION GAP 6 MEQ/L (5-15); BICARBONATE 30.5 MEQ/L (21.0-32.0); BLOOD UREA NITROGEN 11 MG/DL (7-18)
[2017-03-17 00:03] LABS: ALT (GPT) 15 U/L (10-53); AST (GOT) 21 U/L (15-37)
[2017-03-17 00:04] LABS: GLOMERULAR FILTRATION RATE 56 ML/MIN (>89)
[2017-03-17 00:05] LABS: TOTAL BILIRUBIN ADULT 0.5 MG/DL (0.2-1.0)
[2017-03-17 00:06] LABS: ALKALINE PHOSPHATASE 122 U/L (45-117)
[2017-03-17 00:40] VITALS: BP 171/72; PULSE 59; O2SAT 99
[2017-03-17] MEDS ORDERED: ZOFR4TAB PO (01:19)
== END 2017-03-17 01:47 | disposition home or self-care (01) ==
LOC: PHED 23:13
DX: K52.9 Noninfective gastroenteritis and colitis, unspecified (principal)
CPT/HCPCS: 80053; 81001; 83690; 85025; 99283; J7030

== ENCOUNTER 2017-06-27 03:28 | Emergency (ER) | payer OTHER ==
[~2017-06-27] VITALS: Ht 157.5 cm; Wt 70.0 kg
[~2017-06-27 03:28] MED LIST changes: -IBUP400T20 PO; -NORC5TAB PO; -ORPH100T99 PO; +ZOFR4TAB PO
[2017-06-27 03:41] VITALS: BP 128/60; PULSE 71; RESP 20; TEMP 98.1; O2SAT 93
--- NOTE | 2017-06-27 03:53 | PD ---
HPI Chief Complaint: Abdominal Pain Time Seen by Provider: 03:46 Travel History International Travel<30 days: No Contact w/Intl Traveler<30days: No Traveled to known affect area: No History of Present Illness HPI 67 year-old female presents to the emergency department from home by EMS transport for complaint of sinus pressure drainage, ear pain, cough, nausea, vomiting, abdominal pain, and diarrhea. He has had symptoms for the past several days. Symptoms were worsening tonight. Patient states she was unable to get in to see her primary care provider. Patient has history of previous appendectomy cholecystectomy and post traumatic splenectomy. Patient denies hematemesis coffee-ground emesis melanoma hematochezia. Patient denies any dietary indiscretion well water ingestion or foreign travel. Patient rates her pain 10 over 10 intensity. Patient is unable to identify exacerbating or alleviating factors. The patient rates her ear pain and abdominal pain 10 over 10 in intensity. PFSH Past Medical History Narrative Medical Anxiety depression hypertension appendectomy cholecystectomy hysterectomy bowel obstruction seizure; alcohol use; nursing notes reviewed Anxiety: Yes Depression: Yes Cancer: No Cardiovascular Problems: Yes Diminished Hearing: No Gastrointestinal Disorders: Yes GERD: Yes Genitourinary: Yes Herniated Disk: Yes ("DEGENERATIVE DISC DISEASE") Musculoskeletal: Yes (HX SCIATICA, FX PELVIS: 1974) Neurologic: Yes Psychiatric: No Reproductive: No Respiratory: No Immunizations Current: No Seizures: Yes (PSYCHOGENIC ) ?: Not LMP: POST MENOPAUSAL Menopausal: Yes : 2 Para: 2 Past Surgical History Abdominal Surgery: Yes Appendectomy: Yes Cholecystectomy: Yes Genitourinary Surgery: Yes (SURGERY FOR KIDNEY "BLOCKAGE") Oral Surgery: Yes Tonsillectomy: Yes Other Surgery: Yes (LEFT SIDE F[place]IAL [place] [facility] [place] Social History Alcohol Use: Yes (DRINKS WINE OCCASIONALLY) Tobacco Use: No (NEVER) Substance Use: No (DENIES) Allergies-Medications (Allergen,Severity, Reaction): Coded Allergies: amoxicillin (Unverified Allergy, Severe, GI PAIN, 06/27/17) divalproex sodium (Unverified Allergy, Severe, RASH/HIVES, 06/27/17) Reported Meds & Prescriptions Reported Meds & Active Scripts Active Zofran Odt (Ondansetron Odt) 4 Mg Tab 4 Mg SL Q6HR PRN Reported Neurontin (Gabapentin) 100 Mg Cap 600 Mg PO QID Review of Systems Except as stated in HPI: all other systems reviewed are Neg General / Constitutional: No: Fever, Chills HENT: Positive: Sore Throat, Earache, No: Congestion Cardiovascular: No: Chest Pain or Discomfort Respiratory: No: Shortness of Breath Gastrointestinal: Positive: Nausea, Vomiting, Diarrhea, Abdominal Pain Genitourinary: No: Dysuria Musculoskeletal: No: Myalgias, Arthralgias Skin: No Rash Neurologic: No: Weakness Psychiatric: No: Anxiety Hematologic/Lymphatic: No: Easy Bruising Physical Exam Narrative GENERAL: Well-developed well-nourished female in no obvious distress SKIN: Warm and dry. HEAD: Normocephalic. EYES: No scleral icterus. No injection or drainage. ENT: Mucous membranes dry airway is patent poor dentition NECK: Supple, trachea midline. No JVD or lymphadenopathy. CARDIOVASCULAR: Regular rate and rhythm without murmurs, gallops, or rubs. RESPIRATORY: Breath sounds equal bilaterally. No accessory muscle use. GASTROINTESTINAL: Abdomen soft, non-tender, nondistended. MUSCULOSKELETAL: No cyanosis, or edema. BACK: Nontender without obvious deformity. No CVA tenderness. Data Data Last Documented VS Vital Signs Date Time Temp Pulse Resp B/P (MAP) Pulse Ox O2 Delivery O2 Flow Rate FiO2 06/27/17 06:35 16 94 Room Air 06/27/17 04:35 66 06/27/17 03:41 98.1 Orders Orders Complete Blood Count With Diff (06/27/17 03:46) Comprehensive Metabolic Panel (06/27/17 03:46) Lipase (06/27/17 03:46) Lactic Acid (06/27/17 03:46) Urinalysis - C+S If Indicated (06/27/17 03:46) Iv Access Insert/Monitor (06/27/17 03:46) Ecg Monitoring (06/27/17 03:46) Oximetry (06/27/17 03:46) Ondansetron Inj (Zofran Inj) (06/27/17 04:00) Sodium Chloride 0.9% Flush (Ns Flush) (06/27/17 04:00) Electrocardiogram (06/27/17 03:46) Chest, Single Ap (06/27/17 03:46) Sodium Chlorid 0.9% 500 Ml Inj (Ns 500 M (06/27/17 04:00) Ct Abd/Pel W Iv Contrast(Rout) (06/27/17 ) Ct Brain W/O Iv Contrast(Rout) (06/27/17 ) Troponin I (06/27/17 04:10) Iohexol 350 Inj (Omnipaque 350 Inj) (06/27/17 05:45) Labs Laboratory Tests Test 06/27/17 04:10 06/27/17 06:28 White Blood Count 11.4 TH/MM3 Red Blood Count 4.30 MIL/MM3 Hemoglobin 13.6 GM/DL Hematocrit 41.4 % Mean Corpuscular Volume 96.3 FL Mean Corpuscular Hemoglobin 31.8 PG Mean Corpuscular Hemoglobin Concent 33.0 % Red Cell Distribution Width 13.0 % Platelet Count 443 TH/MM3 Mean Platelet Volume 7.3 FL Neutrophils (%) (Auto) 70.0 % Lymphocytes (%) (Auto) 19.1 % Monocytes (%) (Auto) 9.3 % Eosinophils (%) (Auto) 1.1 % Basophils (%) (Auto) 0.5 % Neutrophils # (Auto) 7.9 TH/MM3 Lymphocytes # (Auto) 2.2 TH/MM3 Monocytes # (Auto) 1.1 TH/MM3 Eosinophils # (Auto) 0.1 TH/MM3 Basophils # (Auto) 0.1 TH/MM3 CBC Comment DIFF FINAL Differential Comment Blood Urea Nitrogen 9 MG/DL Creatinine 0.93 MG/DL Random Glucose 118 MG/DL Total Protein 8.3 GM/DL Albumin 3.4 GM/DL Calcium Level 8.9 MG/DL Alkaline Phosphatase 149 U/L Aspartate Amino Transf (AST/SGOT) 20 U/L Alanine Aminotransferase (ALT/SGPT) 21 U/L Total Bilirubin 0.7 MG/DL Sodium Level 139 MEQ/L Potassium Level 3.5 MEQ/L Chloride Level 103 MEQ/L Carbon Dioxide Level 29.3 MEQ/L Anion Gap 7 MEQ/L Estimat Glomerular Filtration Rate 60 ML/MIN Lactic Acid Level 0.8 mmol/L Troponin I LESS THAN 0.02 NG/ML Lipase 105 U/L Urine pH 5.5 Urine Protein NEG mg/dL Urine Glucose (UA) NEG mg/dL Urine Ketones NEG mg/dL Urine Occult Blood NEG Urine Nitrite NEG Urine Bilirubin NEG Urine Leukocyte Esterase NEG MDM Medical Decision Making Medical Screen Exam Complete: Yes Emergency Medical Condition: Yes Medical Record Reviewed: Yes Interpretation(s) EKG sinus rhythm rate 63 QS inferiorly age-indeterminate no acute ST elevation or injury pattern change or ectopy noted; no change from prior comparison ekg's CT abd/pel: CONCLUSION: 1. No acute findings identified within the abdomen or pelvis. 2. Stable hypodense 2.4 cm right uterine mass most likely representing a fibroid. 3. Ectatic infrarenal aorta measuring up to 2.6 cm. Anders Kimball MD on June 27, 2017 at 6:10 Board Certified Radiologist. This report was verified electronically. ct brain w/o: No acute abnormality per reading radiologist Dr. Tarango Last Impressions Chest X-Ray 06/27/17 0346 Signed Impressions: Service Date/Time: Tuesday, June 27, 2017 03:58 - CONCLUSION: No acute cardiopulmonary abnormality is identified. Anders Kimball MD Head CT 06/27/17 0000 Signed Impressions: Service Date/Time: Tuesday, June 27, 2017 05:37 - CONCLUSION: Stable noncontrast head CT. No acute intracranial abnormality is identified. Anders Kimball MD CBC & BMP Diagram 06/27/17 04:10 Total Protein 8.3 H, Albumin 3.4, Calcium Level 8.9, Alkaline Phosphatase 149 H , Aspartate Amino Transf (AST/SGOT) 20, Alanine Aminotransferase (ALT/SGPT) 21, Total Bilirubin 0.7 Vital Signs Date Time Temp Pulse Resp B/P (MAP) Pulse Ox O2 Delivery O2 Flow Rate FiO2 06/27/17 04:35 66 18 107/51 (69) 93 Room Air 06/27/17 03:41 98.1 71 20 128/60 (82) 93 lactic acid: 0.8, not elevated Troponin I: Less than 0.02, not elevated Differential Diagnosis Gastroenteritis viral syndrome bowel obstruction sinusitis bronchitis pneumonia dehydration electrolyte disturbance food borne illness Narrative Course IV access obtained specimens collected and sent for resulting patient placed on geriatric nurse assistant with continuous pulse oximetry; patient administered 500 ml bolus of normal saline and Zofran 4 mg IV with maintenance IV fluids 1 25 cc per hour At 6:25 AM patient is clinically improved; lab values grossly within normal range; CT brain noncontrast reveals no acute abnormality and CT abdomen and pelvis reveals no acute abnormality; no evidence for small bowel obstruction or partial small bowel obstruction As 7 AM patient reports she feels markedly improved is aware that she will be given a prescription for nausea vomiting and requests antibiotic for her ear pain patient with recent respiratory infection symptoms and will be covered with Keflex Diagnosis Primary Impression: Gastroenteritis Additional Impression: Otalgia of right ear Referrals: Primary Care Physician call for appointment Patient Instructions: General Instructions Additional Instructions: Clear liquid diet for next 12-24 hours advance as tolerated to bland/Anni diet then advance to regular diet avoid fried and fatty foods Increase fluid hydration Take chronic medications as chronically prescribed Takes Zofran as prescribed as needed for nausea and/or vomiting Take acetaminophen/Tylenol every 4 hours as needed for fever 100.4F or greater or for minor pain Take ibuprofen/Advil/Motrin per package instructions as tolerated for fever 100.4F or greater or for pain associated with inflammation Return to the emergency department for any concerns or change in conditions Follow up with her primary care provider Med/Other Pt SpecificInfo: Prescription(s) given Scripts Cephalexin (Keflex) 500 Mg Capsule 500 MG PO Q6H for Infection for 7 Days, #28 CAP 0 Refills Prov: Shaye Estrada MD 06/27/17 Ondansetron Odt (Zofran Odt) 4 Mg Tab 4 MG SL Q6HR Y for Nausea/Vomiting, #10 TAB 0 Refills Prov: Shaye Estrada MD 06/27/17 Disposition: 01 DISCHARGE HOME Condition: Stable Shaye Estrada MD Jun 27, 2017 03:53
[2017-06-27] MEDS ORDERED: ONDANSETRON HCL 4 MG/2 ML VIAL IVP ONE (04:00)
[2017-06-27] MEDS ORDERED: SODIUM CHLORID 0.9% 500 ML INJ 500 ML IV ONE (04:00)
[2017-06-27] MEDS ORDERED: SODIUM CHLORIDE 0.9% FLUSH 10 ML FLUSH IV FLUSH PRN (04:00)
--- NOTE | 2017-06-27 04:09 | RADRPT ---
EXAM DATE/TIME: 06/27/2017 03:58 [facility] COMPARISON: CHEST SINGLE AP, August 30, 2016, 23:44. INDICATIONS : Free air, abdomen pain. MEDICAL HISTORY : Cardiovascular disease. Seizures. SURGICAL HISTORY : Appendectomy. Cholecystectomy.Tonsillectomy ENCOUNTER: Initial ACUITY: 1 day PAIN SCORE: 10/10 LOCATION: Bilateral chest FINDINGS: Portable AP view of the chest demonstrates a normal-sized cardiac silhouette. No effusion, consolidat ion, or pneumothorax is visualized. The bones and soft tissues demonstrate no acute abnormality. Ther e is mild atelectasis at the lung bases. CONCLUSION: No acute cardiopulmonary abnormality is identified. Anders Kimball MD on June 27, 2017 at 4:07 Board Certified Radiologist. This report was verified electronically.
[2017-06-27 04:24] LABS: AUTOMATED NEUTROPHIL # 7.9 TH/MM3 (1.8-7.7); BASOPHIL # 0.1 TH/MM3 (0-0.2); BASOPHIL % 0.5 % (0.0-2.0); EOSINOPHIL # 0.1 TH/MM3 (0-0.4); EOSINOPHIL % 1.1 % (0.0-4.0); HEMATOCRIT 41.4 % (35.0-46.0); LYMPH % 19.1 % (9.0-44.0); LYMPHOCYTE # 2.2 TH/MM3 (1.0-4.8); MEAN CELL VOLUME 96.3 FL (80.0-100.0); MEAN CORPUSCULAR HEMOGLOBIN 31.8 PG (27.0-34.0); MONO % 9.3 % (0.0-8.0); PLATELET COUNT 443 TH/MM3 (150-450); WHITE BLOOD COUNT 11.4 TH/MM3 (4.0-11.0)
[2017-06-27 04:28] LABS: HEMO FLAGS DIFF FINAL
[2017-06-27 04:33] LABS: CHLORIDE 103 MEQ/L (98-107); POTASSIUM 3.5 MEQ/L (3.5-5.1); SODIUM (NA) 139 MEQ/L (136-145)
[2017-06-27 04:35] VITALS: BP 107/51; PULSE 66; RESP 18; O2SAT 93
[2017-06-27 04:37] LABS: ANION GAP 7 MEQ/L (5-15); BICARBONATE 29.3 MEQ/L (21.0-32.0); BLOOD UREA NITROGEN 9 MG/DL (7-18)
[2017-06-27 04:40] LABS: ALT (GPT) 21 U/L (10-53); AST (GOT) 20 U/L (15-37); GLOMERULAR FILTRATION RATE 60 ML/MIN (>89)
[2017-06-27 04:41] LABS: TOTAL BILIRUBIN ADULT 0.7 MG/DL (0.2-1.0)
[2017-06-27 04:43] LABS: ALKALINE PHOSPHATASE 149 U/L (45-117)
[2017-06-27] MEDS ORDERED: IOHEXOL 350 MG/ML 10 ML VIAL (for RAD DIAG) IVCONTRAST ONE (05:45)
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
--- NOTE | 2017-06-27 06:17 | RADRPT ---
EXAM DATE/TIME: 06/27/2017 05:42 [facility] COMPARISON: CT ABDOMEN & PELVIS W/O CONTRAST, February 25, 2016, 9:48. INDICATIONS : Diarrhea and abdominal pain. IV CONTRAST: 96 cc Omnipaque 350 (iohexol) IV ORAL CONTRAST: No oral contrast ingested. RADIATION DOSE: 10.41 CTDIvol (mGy) MEDICAL HISTORY : Gastroesophageal reflux disease. Kidney "blockage", pelvic fracture SURGICAL HISTORY : Appendectomy. Cholecystectomy. ENCOUNTER: Initial ACUITY: 4 - 6 days PAIN SCALE: 10/10 LOCATION: periumbillical TECHNIQUE: Volumetric scanning of the abdomen and pelvis was performed. Using automated exposure control and ad justment of the mA and/or kV according to patient size, radiation dose was kept as low as reasonably achievable to obtain optimal diagnostic quality images. DICOM format image data is available electro nically for review and comparison. FINDINGS: LOWER LUNGS: The visualized lower lungs are clear. LIVER: Homogeneous density without lesion. There is no dilation of the biliary tree. Gallbladder is absent . SPLEEN: Spleen is absent. PANCREAS: Within normal limits. KIDNEYS: Normal in size and shape. There is no mass, stone or hydronephrosis. ADRENAL GLANDS: Within normal limits. VASCULAR: Infrarenal aorta is ectatic measuring up to 2.6 cm. There is mild atherosclerotic disease. BOWEL/MESENTERY: The stomach, small bowel, and colon demonstrate no acute abnormality. There is no free intraperitone al air or fluid. ABDOMINAL WALL: Within normal limits. RETROPERITONEUM: There is no lymphadenopathy. BLADDER: No wall thickening or mass. REPRODUCTIVE: There is a stable hypodense right uterine mass measuring 2.4 cm. INGUINAL: There is no lymphadenopathy or hernia. MUSCULOSKELETAL: There is scoliosis with multilevel degenerative disc disease. CONCLUSION: 1. No acute findings identified within the abdomen or pelvis. 2. Stable hypodense 2.4 cm right uterine mass most likely representing a fibroid. 3. Ectatic infrarenal aorta measuring up to 2.6 cm. Anders Kimball MD on June 27, 2017 at 6:10 Board Certified Radiologist. This report was verified electronically.
[2017-06-27 06:35] VITALS: RESP 16; O2SAT 94
[2017-06-27 06:39] LABS: BLOOD, URINE NEG (NEG); GLUCOSE,URINE NEG (NEG); KETONE, URINE NEG (NEG); METHOD OF COLLECTION CLEAN CATCH; NITRITE,URINE NEG (NEG); PH, URINE 5.5 (5.0-8.5); URINE COLOR YELLOW (YELLW/STRAW)
[2017-06-27 06:43] LABS: COMMENT (UR) CULT NOT INDICATED; CULTURE IF INDICATED CULT NOT INDICATED; SQUAMOUS EPITHELIAL CELL URINE 0-5 /hpf (0-5); WBC, URINE 0-2 /hpf (0-5)
[2017-06-27] MEDS ORDERED: ZOFR4TAB3 SL (06:44)
[2017-06-27] MEDS ORDERED: CEPH-460 PO (07:02)
[2017-06-27 07:11] VITALS: BP 138/56
--- NOTE | 2017-06-28 23:06 | EKG ---
Date Performed: 06/27/2017 Time Performed: 04:05:12 PTAGE: 67 years EKG: Sinus rhythm INFERIOR MYOCARDIAL INFARCTION ABNORMAL ECG PREVIOUS TRACING : 03/06/2016 17.41 Compared to prior tracing no significant change DOCTOR: Maximilian Gongora Interpretating Date/Time 06/28/2017 23:05:21
== END 2017-06-27 07:24 | disposition home or self-care (01) ==
LOC: PHED 03:28
DX: K52.9 Noninfective gastroenteritis and colitis, unspecified (principal); H92.01 Otalgia, right ear; R94.31 Abnormal electrocardiogram [ECG] [EKG]
CPT/HCPCS: 70450; 71010; 74177; 80053; 81001; 83605; 83690; 84484; 85025; 93005; 96361; 96374; 99285; J2405; J7040; Q9967

== ENCOUNTER 2017-11-14 07:21 | Emergency (ER) | payer OTHER ==
[~2017-11-14] VITALS: Ht 157.5 cm; Wt 70.5 kg
[~2017-11-14 07:21] MED LIST changes: +CEPH-460 PO; -ZOFR4TAB PO; +ZOFR4TAB3 SL
[2017-11-14 07:22] VITALS: BP 188/73; PULSE 63; RESP 18; TEMP 97.9; O2SAT 100
[2017-11-14] MEDS ORDERED: IBUP200C PO (07:30)
[2017-11-14] MEDS ORDERED: TYLE325T PO (07:30)
[2017-11-14] MEDS ORDERED: RANITIDINE HCL SYRUP 150 MG/10 ML UDC PO ONE (07:45)
[2017-11-14] MEDS ORDERED: ALUMINUM/MAGNESIUM/SIMETH 30 ML CUP PO ONE (07:45)
[2017-11-14] MEDS ORDERED: LIDOCAINE VISCOUS 2% SOLN 15 ML UDC PO ONE (07:45)
[2017-11-14] MEDS ORDERED: PANTOPRAZOLE SOD 40 MG DELAYED RELEASE TAB PO ONE (07:45)
--- NOTE | 2017-11-14 07:48 | PD ---
HPI Chief Complaint: GI Complaint Time Seen by Provider: 07:44 Travel History International Travel<30 days: No Contact w/Intl Traveler<30days: No Traveled to known affect area: No History of Present Illness HPI Patient presents with complaints of epigastric discomfort after taking a Tylenol 3 last night. States onset of pain was 3 AM this morning. Denies vomiting. Mild nausea. Reports normal bowel movement yesterday without blood. Reports normal urination. States she has chronic back pain followed by pain management. Given Ultram which caused a seizure. States she was given Tylenol 3 and took her first dose last night prior to bed. Reports a sensitive stomach. PFSH Past Medical History Anxiety: Yes Depression: Yes Cancer: No Cardiovascular Problems: Yes Diminished Hearing: No Gastrointestinal Disorders: Yes GERD: Yes Genitourinary: Yes Herniated Disk: Yes ("DEGENERATIVE DISC DISEASE") Musculoskeletal: Yes (HX SCIATICA, FX PELVIS: 1974) Neurologic: Yes Psychiatric: No Reproductive: No Respiratory: No Immunizations Current: No Seizures: Yes (PSYCHOGENIC ) Influenza Vaccination: No ?: Not Menopausal: Yes : 2 Para: 2 Past Surgical History Abdominal Surgery: Yes Appendectomy: Yes Cholecystectomy: Yes Genitourinary Surgery: Yes (SURGERY FOR KIDNEY "BLOCKAGE") Oral Surgery: Yes Tonsillectomy: Yes Other Surgery: Yes (LEFT SIDE FACIAL SURGERY: RECONSTRUCTION S/P [facility] [place]: 1974) Social History Alcohol Use: Yes (DRINKS WINE OCCASIONALLY) Tobacco Use: No (NEVER) Substance Use: No (DENIES) Allergies-Medications (Allergen,Severity, Reaction): Coded Allergies: amoxicillin (Unverified Allergy, Severe, GI PAIN, 11/14/17) divalproex sodium (Unverified Allergy, Severe, RASH/HIVES, 11/14/17) Reported Meds & Prescriptions Reported Meds & Active Scripts Active Reported Ibuprofen 200 Mg Cap 500 Mg PO Q6H PRN Tylenol (Acetaminophen) 325 Mg Tab 650 Mg PO Q4H PRN Neurontin (Gabapentin) 100 Mg Cap 600 Mg PO QID Review of Systems General / Constitutional: No: Fever Eyes: No: Visual changes HENT: No: Headaches Cardiovascular: No: Chest Pain or Discomfort Respiratory: No: Shortness of Breath Gastrointestinal: Positive: Nausea, Abdominal Pain Genitourinary: No: Dysuria Musculoskeletal: No: Pain Skin: No Rash Neurologic: No: Weakness Psychiatric: No: Depression Endocrine: No: Polydipsia Hematologic/Lymphatic: No: Easy Bruising Physical Exam Narrative GENERAL: Well-nourished, well-developed patient. SKIN: Focused skin assessment warm/dry. HEAD: Normocephalic. EYES: No scleral icterus. No injection or drainage. NECK: Supple, trachea midline. No JVD or lymphadenopathy. CARDIOVASCULAR: Regular rate and rhythm without murmurs, gallops, or rubs. RESPIRATORY: Breath sounds equal bilaterally. No accessory muscle use. GASTROINTESTINAL: Abdomen soft, diffusely tender in the epigastric region, nondistended. MUSCULOSKELETAL: No cyanosis, or edema. BACK: Nontender without obvious deformity. No CVA tenderness. Data Data Last Documented VS Vital Signs Date Time Temp Pulse Resp B/P (MAP) Pulse Ox O2 Delivery O2 Flow Rate FiO2 11/14/17 07:22 97.9 63 18 188/73 (111) 100 Orders Orders Al-Mag Hy-Si 40-40-4 Mg/Ml Liq (Mag-Al P (11/14/17 07:45) Lidocaine 2% Viscous (Xylocaine 2% Visco (11/14/17 07:45) Pantoprazole (Protonix) (11/14/17 07:45) Ranitidine Liq (Zantac Liq) (11/14/17 07:45) Famotidine (Pepcid) (11/14/17 08:00) MDM Medical Decision Making Medical Screen Exam Complete: Yes Emergency Medical Condition: Yes Differential Diagnosis Gastritis, gastric ulcer, duodenal ulcer Narrative Course Assessment plan discussed the patient at bedside. Hemoccult negative. Epigastric discomfort resolved. Diagnosis Primary Impression: Gastritis Qualified Codes: K29.00 - Acute gastritis without bleeding Additional Impression: Chronic back pain Qualified Codes: M54.5 - Low back pain; G89.29 - Other chronic pain Patient Instructions: General Instructions Additional Instructions: Encouraged warm heat gentle stretching and massage for lower back pain. Encourage cessation of Tylenol 3. Discussed a slight increase in her Neurontin for pain control. Follow with pain management/PCP. Return to the emergency room with any onset of new symptoms. Encouraged to avoid aggravating factors reflux including but not limited to alcohol tobacco late and large meals spicy meals weight. Med/Other Pt SpecificInfo: Prescription(s) given Scripts Pantoprazole (Protonix) 40 Mg Tab 40 MG PO DAILY for Reflux, #30 TAB 0 Refills Prov: Wild Corral MD 11/14/17 Disposition: 01 DISCHARGE HOME Condition: Good Wild Corral MD Nov 14, 2017 07:48
[2017-11-14] MEDS ORDERED: FAMOTIDINE 20 MG TAB PO ONE (08:00)
[2017-11-14] MEDS ORDERED: PROT40TA PO (09:17)
[2017-11-14 09:28] VITALS: BP 166/72
== END 2017-11-14 09:29 | disposition home or self-care (01) ==
LOC: PHED 07:21
DX: K29.00 Acute gastritis without bleeding (principal); M54.5 Low back pain; G89.29 Other chronic pain; K21.9 Gastro-esophageal reflux disease without esophagitis; F32.9 Major depressive disorder, single episode, unspecified; Z88.0 Allergy status to penicillin; Z79.899 Other long term (current) drug therapy
CPT/HCPCS: 99283

== ENCOUNTER 2017-11-14 09:41 | Emergency (ER) | payer OTHER ==
[~2017-11-14] VITALS: Ht 157.5 cm; Wt 70.5 kg
[~2017-11-14 09:41] MED LIST changes: +IBUP200C PO; +PROT40TA PO; +TYLE325T PO
[2017-11-14 09:43] VITALS: BP 214/107; PULSE 68; RESP 18; TEMP 97.5; O2SAT 100
[2017-11-14 10:03] VITALS: BP 177/83; PULSE 60; RESP 18; O2SAT 100
[2017-11-14 10:06] LABS: WHITE BLOOD COUNT 9.9 TH/MM3 (4.0-11.0)
[2017-11-14 10:07] LABS: AUTOMATED NEUTROPHIL # 5.9 TH/MM3 (1.8-7.7); BASOPHIL # 0.1 TH/MM3 (0-0.2); BASOPHIL % 0.6 % (0.0-2.0); EOSINOPHIL # 0.1 TH/MM3 (0-0.4); EOSINOPHIL % 0.9 % (0.0-4.0); HEMATOCRIT 42.1 % (35.0-46.0); LYMPH % 32.3 % (9.0-44.0); LYMPHOCYTE # 3.2 TH/MM3 (1.0-4.8); MEAN CELL VOLUME 97.9 FL (80.0-100.0); MEAN CORPUSCULAR HEMOGLOBIN 32.5 PG (27.0-34.0); MEAN CORPUSCULAR HGB CONC 33.2 % (32.0-36.0); MEAN PLATELET VOLUME 6.9 FL (7.0-11.0); MONO % 6.1 % (0.0-8.0); MONOCYTE # 0.6 TH/MM3 (0-0.9); NEUT % 60.1 % (16.0-70.0); PLATELET COUNT 416 TH/MM3 (150-450); RED CELL DISTRIBUTION WIDTH 12.6 % (11.6-17.2)
--- NOTE | 2017-11-14 10:27 | RADRPT ---
EXAM DATE/TIME: 11/14/2017 10:08 [facility] COMPARISON: CHEST SINGLE AP, June 27, 2017, 3:58. INDICATIONS : Sudden onset of mid lower chest upper abdomen area pain MEDICAL HISTORY : Gastroesophageal reflux disease. SURGICAL HISTORY : Appendectomy. Cholecystectomy. ENCOUNTER: Initial ACUITY: 1 day PAIN SCORE: 7/10 LOCATION: Bilateral middle lower chest FINDINGS: A single view of the chest demonstrates the lungs to be symmetrically aerated without evidence of mas s, infiltrate or effusion. The cardiomediastinal contours are unremarkable. Osseous structures are intact. CONCLUSION: No acute disease. Stan Chan MD on November 14, 2017 at 10:24 Board Certified Radiologist. This report was verified electronically.
[2017-11-14 10:28] LABS: CHLORIDE 107 MEQ/L (98-107); SODIUM (NA) 142 MEQ/L (136-145)
[2017-11-14 10:31] LABS: CALCIUM 8.7 MG/DL (8.5-10.1); GLUCOSE,RANDOM 97 MG/DL (74-106)
[2017-11-14 10:32] LABS: BLOOD UREA NITROGEN 9 MG/DL (7-18)
[2017-11-14 10:35] LABS: CREATININE 0.86 MG/DL (0.50-1.00); GLOMERULAR FILTRATION RATE 65 ML/MIN (>89)
[2017-11-14 10:40] LABS: TROPONIN I LESS THAN 0.02 NG/ML (0.02-0.05)
--- NOTE | 2017-11-14 10:40 | PD ---
HPI Chief Complaint: Chest Pain Time Seen by Provider: 10:33 Travel History International Travel<30 days: No Contact w/Intl Traveler<30days: No Traveled to known affect area: No History of Present Illness HPI Patient was discharged approximately 30 minutes prior to this episode. Diagnosed with gastritis. Pain-free at time of discharge. Waiting in the waiting room for a ride home when she reexperienced epigastric discomfort. Patient was brought back for reevaluation and cardiac workup. Pain-free at this time without intervention. Denies any cardiac history, diabetes, tobacco use, radiation, shortness of breath, or diaphoresis. Positive family history for cardiac disease. No history of hypertension or hyperlipidemia. Compliant with Neurontin for chronic back pain. PFSH Past Medical History Anxiety: Yes Depression: Yes Cancer: No Cardiovascular Problems: Yes Diminished Hearing: No Gastrointestinal Disorders: Yes GERD: Yes Genitourinary: Yes Herniated Disk: Yes ("DEGENERATIVE DISC DISEASE") Musculoskeletal: Yes (HX SCIATICA, FX PELVIS: 1974) Neurologic: Yes Psychiatric: No Reproductive: No Respiratory: No Immunizations Current: No Seizures: Yes (PSYCHOGENIC ) Influenza Vaccination: No ?: Not Menopausal: Yes : 2 Para: 2 Past Surgical History Abdominal Surgery: Yes Appendectomy: Yes Cholecystectomy: Yes Genitourinary Surgery: Yes (SURGERY FOR KIDNEY "BLOCKAGE") Oral Surgery: Yes Tonsillectomy: Yes Other Surgery: Yes (LEFT SIDE FACIAL SURGERY: RECONSTRUCTION S/P [facility] [place]: 1974) Social History Alcohol Use: Yes (DRINKS WINE OCCASIONALLY) Tobacco Use: No (NEVER) Substance Use: No (DENIES) Allergies-Medications (Allergen,Severity, Reaction): Coded Allergies: amoxicillin (Unverified Allergy, Severe, GI PAIN, 11/14/17) divalproex sodium (Unverified Allergy, Severe, RASH/HIVES, 11/14/17) Reported Meds & Prescriptions Reported Meds & Active Scripts Active Protonix (Pantoprazole Sodium) 40 Mg Tab 40 Mg PO DAILY Reported Ibuprofen 200 Mg Cap 500 Mg PO Q6H PRN Tylenol (Acetaminophen) 325 Mg Tab 650 Mg PO Q4H PRN Neurontin (Gabapentin) 100 Mg Cap 600 Mg PO QID Review of Systems General / Constitutional: No: Fever Eyes: No: Visual changes HENT: No: Headaches Cardiovascular: No: Chest Pain or Discomfort Respiratory: No: Shortness of Breath Gastrointestinal: Positive: Abdominal Pain Genitourinary: No: Dysuria Musculoskeletal: No: Pain Skin: No Rash Neurologic: No: Weakness Psychiatric: No: Depression Endocrine: No: Polydipsia Hematologic/Lymphatic: No: Easy Bruising Physical Exam Narrative GENERAL: Well-nourished, well-developed patient. SKIN: Focused skin assessment warm/dry. HEAD: Normocephalic. EYES: No scleral icterus. No injection or drainage. NECK: Supple, trachea midline. No JVD or lymphadenopathy. CARDIOVASCULAR: Regular rate and rhythm without murmurs, gallops, or rubs. RESPIRATORY: Breath sounds equal bilaterally. No accessory muscle use. GASTROINTESTINAL: Abdomen soft, non-tender, nondistended. MUSCULOSKELETAL: No cyanosis, or edema. BACK: Nontender without obvious deformity. No CVA tenderness. Data Data Last Documented VS Vital Signs Date Time Temp Pulse Resp B/P (MAP) Pulse Ox O2 Delivery O2 Flow Rate FiO2 11/14/17 11:06 76 18 155/63 (93) 99 11/14/17 10:03 Room Air 11/14/17 09:43 97.5 Orders Orders Electrocardiogram (11/14/17 09:57) Complete Blood Count With Diff (11/14/17 09:57) Basic Metabolic Panel (Bmp) (11/14/17 09:57) Ckmb (Isoenzyme) Profile (11/14/17 09:57) Troponin I (11/14/17 09:57) Chest, Single Ap (11/14/17 09:57) Iv Access Insert/Monitor (11/14/17 09:57) Ecg Monitoring (11/14/17 09:57) Oxygen Administration (11/14/17 09:57) Oximetry (11/14/17 09:57) Labs Laboratory Tests Test 11/14/17 10:00 White Blood Count 9.9 TH/MM3 Red Blood Count 4.30 MIL/MM3 Hemoglobin 14.0 GM/DL Hematocrit 42.1 % Mean Corpuscular Volume 97.9 FL Mean Corpuscular Hemoglobin 32.5 PG Mean Corpuscular Hemoglobin Concent 33.2 % Red Cell Distribution Width 12.6 % Platelet Count 416 TH/MM3 Mean Platelet Volume 6.9 FL Neutrophils (%) (Auto) 60.1 % Lymphocytes (%) (Auto) 32.3 % Monocytes (%) (Auto) 6.1 % Eosinophils (%) (Auto) 0.9 % Basophils (%) (Auto) 0.6 % Neutrophils # (Auto) 5.9 TH/MM3 Lymphocytes # (Auto) 3.2 TH/MM3 Monocytes # (Auto) 0.6 TH/MM3 Eosinophils # (Auto) 0.1 TH/MM3 Basophils # (Auto) 0.1 TH/MM3 CBC Comment DIFF FINAL Differential Comment Blood Urea Nitrogen 9 MG/DL Creatinine 0.86 MG/DL Random Glucose 97 MG/DL Calcium Level 8.7 MG/DL Sodium Level 142 MEQ/L Potassium Level 4.0 MEQ/L Chloride Level 107 MEQ/L Carbon Dioxide Level 29.0 MEQ/L Anion Gap 6 MEQ/L Estimat Glomerular Filtration Rate 65 ML/MIN Total Creatine Kinase 76 U/L Troponin I LESS THAN 0.02 NG/ML MDM Medical Decision Making Medical Screen Exam Complete: Yes Emergency Medical Condition: Yes Differential Diagnosis Gastritis, gastric ulcer, duodenal ulcer, indigestion, acute coronary syndrome, malingering, depression Narrative Course Assessment plan discussed patient at bedside. EKG normal sinus rhythm rate of 78. Cardiac enzymes negative. Diagnosis Primary Impression: Epigastric discomfort Patient Instructions: General Instructions Additional Instructions: Continue per previous instructions. Follow-up with PCP. Return to the emergency room with any onset of new symptoms. Med/Other Pt SpecificInfo: No Meds Exist/No RX given Disposition: 01 DISCHARGE HOME Condition: Good Wild Corral MD Nov 14, 2017 10:39
[2017-11-14 11:06] VITALS: BP 155/63; PULSE 76; RESP 18; O2SAT 99
--- NOTE | 2017-11-14 19:01 | EKG ---
Date Performed: 11/14/2017 Time Performed: 09:54:46 PTAGE: 67 years EKG: Sinus rhythm POSSIBLE LVH BY LIMB LEAD VOLTAGE CRITERIA CANNOT EXCLUDE OLD ANTERIOR INFARCT Since the previous tr acing, no significant change noted ABNORMAL ECG NO PREVIOUS TRACING DOCTOR: Julio C Brown Interpretating Date/Time 11/14/2017 18:59:55
== END 2017-11-14 11:34 | disposition home or self-care (01) ==
LOC: PHED 09:41
DX: K29.00 Acute gastritis without bleeding (principal); R94.31 Abnormal electrocardiogram [ECG] [EKG]; K21.9 Gastro-esophageal reflux disease without esophagitis; F32.9 Major depressive disorder, single episode, unspecified; Z88.0 Allergy status to penicillin; Z79.899 Other long term (current) drug therapy; M54.5 Low back pain; G89.29 Other chronic pain
CPT/HCPCS: 71045; 80048; 82550; 84484; 85025; 93005; 99285

== ENCOUNTER 2017-12-28 12:06 | Emergency (ER) | payer OTHER ==
[~2017-12-28] VITALS: Ht 157.5 cm; Wt 70.0 kg
[~2017-12-28 12:06] MED LIST changes: -CEPH-460 PO; -ZOFR4TAB3 SL
[2017-12-28 12:21] VITALS: BP 124/61; PULSE 62; RESP 16; TEMP 97.9; O2SAT 97
[2017-12-28] MEDS ORDERED: ACETAMINOPHEN 325 MG TAB PO ONE (12:45)
[2017-12-28] MEDS ORDERED: GABA800T PO (12:47)
[2017-12-28] MEDS ORDERED: GABA600T PO (12:48)
--- NOTE | 2017-12-28 13:29 | PD ---
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 Patient presents emergency department today after having 2 seizures at home and then another seizure like episode in the back of the ambulance on the way here. Per EMS the patient had no postictal phase and was speaking rate after the event stop. Patient states her episodes are triggered by stress and she has been in under increased stress today. She states during 1 of her episodes she thinks she injured her left hip. She denies any chest pain shortness breath abdominal pain nausea vomiting diarrhea constipation headache or neck injury. Symptoms are resolved, associated signs and symptoms in context as above. Started today. PFSH Past Medical History Anxiety: Yes Depression: Yes Cancer: No Cardiovascular Problems: Yes Diminished Hearing: No Gastrointestinal Disorders: Yes GERD: Yes Genitourinary: Yes Herniated Disk: Yes ("DEGENERATIVE DISC DISEASE") Musculoskeletal: Yes (HX SCIATICA, FX PELVIS: 1974) Neurologic: Yes Psychiatric: No Reproductive: No Respiratory: No Immunizations Current: No Seizures: Yes (PSYCHOGENIC ) Tetanus Vaccination: > 5 Years Influenza Vaccination: No Menopausal: Yes : 2 Para: 2 Past Surgical History Abdominal Surgery: Yes Appendectomy: Yes Cholecystectomy: Yes Genitourinary Surgery: Yes (SURGERY FOR KIDNEY "BLOCKAGE") Oral Surgery: Yes Tonsillectomy: Yes Other Surgery: Yes (LEFT SIDE FACIAL SURGERY: RECONSTRUCTION S/P [facility]: 1974) Social History Alcohol Use: Yes (DRINKS WINE OCCASIONALLY) Tobacco Use: No (NEVER) Substance Use: No (DENIES) Allergies-Medications (Allergen,Severity, Reaction): Coded Allergies: amoxicillin (Unverified Allergy, Severe, GI PAIN, 12/28/17) divalproex sodium (Unverified Allergy, Severe, RASH/HIVES, 12/28/17) Reported Meds & Prescriptions Reported Meds & Active Scripts Active Protonix (Pantoprazole Sodium) 40 Mg Tab 40 Mg PO DAILY Reported Gabapentin 600 Mg Tab 600 Mg PO TID Gabapentin 800 Mg Tab 900 Mg PO DAILY Review of Systems Except as stated in HPI: all other systems reviewed are Neg Physical Exam Narrative GENERAL: Well-developed morbidly obese female in no obvious distress. SKIN: Warm and dry. HEAD: Atraumatic. Normocephalic. EYES: Pupils equal and round. No scleral icterus. No injection or drainage. ENT: No nasal bleeding or discharge. Mucous membranes pink and moist. NECK: Trachea midline. No JVD. CARDIOVASCULAR: Regular rate and rhythm. RESPIRATORY: No accessory muscle use. Clear to auscultation. Breath sounds equal bilaterally. GASTROINTESTINAL: Abdomen soft, non-tender, nondistended. Hepatic and splenic margins not palpable. MUSCULOSKELETAL: Extremities without clubbing, cyanosis, or edema. No obvious deformities. No midline CT or L-spine tenderness, there is no tenderness about either hip, pelvis stable, full nontender range of motion of all extremities. Pulses motor and sensory intact distally in all 4 extremity's, compartments are soft. NEUROLOGICAL: Awake and alert. Cranial nerves II through XII grossly intact and nonfocal 5 out of 5 strength in all 4 extremities, no epileptiform activity seen in the emergency department. PSYCHIATRIC: Appropriate mood and affect; insight and judgment normal. Data Data Last Documented VS Vital Signs Date Time Temp Pulse Resp B/P (MAP) Pulse Ox O2 Delivery O2 Flow Rate FiO2 12/28/17 15:07 66 16 128/63 (84) 12/28/17 14:20 96 Room Air 12/28/17 12:21 97.9 Orders Orders Acetaminophen (Tylenol) (12/28/17 12:45) Hip, Ap Only W Ap Pelvis (12/28/17 ) Ed Discharge Order (12/28/17 13:41) MDM Medical Decision Making Medical Screen Exam Complete: Yes Emergency Medical Condition: Yes Differential Diagnosis Pseudoseizures, epileptiform seizures, hip injury unlikely. Narrative Course Patient 67-year-old female apparently with a history of non-epileptiform seizures presents emergency department after having 2 "seizure" today, the patient self reports that she has a history of non-epileptiform seizures. EMS reports that she also had one for them. No postictal phase and immediately came to. Patient also complains of right hip pain which she is complaining for in the past according to documentation. X-rays were negative. Discussed her diagnosis of non-epileptiform seizures and recommended follow-up with a counselor or bharat Ernst. There is no indication further workup of this patient. Transportation was arranged home for her. She is stable for discharge Diagnosis Primary Impression: Seizure-like activity Additional Impression: Right hip pain Referrals: [facility] Disposition: 01 DISCHARGE HOME Condition: Stable Rosalio Patel MD Dec 28, 2017 13:29
--- NOTE | 2017-12-28 13:36 | RADRPT ---
EXAM DATE: 12/28/2017 1:23 PM EDT AGE/SEX: 67 years / Female INDICATIONS: Right hip pain post fall CLINICAL DATA: This is the patient's initial encounter. Patient reports that signs and symptoms have been present for 1 day and indicates a pain score of 9/10. MEDICAL/SURGICAL HISTORY: None. None. COMPARISON: No prior [facility] exams available for comparison. FINDINGS: Suggestion of a subtle subcapital fracture along the inferior margin of the right femoral neck. There appears to be an old fracture deformity of the inferior pubic ramus on the right as well. Subchondra l cysts at the pubic symphysis may represent chronic inflammation/degeneration. CONCLUSION: 1. Plain film findings suggest a subtle subcapital fracture of the inferior aspect of the right femo ral neck. 2. There also appears to be an old healed fracture deformity of the inferior pubic ramus on the righ t. 3. CT scan of the right hip could be performed for further characterization if clinically warranted. Electronically signed by: Travis Scanlon MD 12/28/2017 1:35 PM EDT
[2017-12-28 13:43] VITALS: BP 136/53; PULSE 51; RESP 18; O2SAT 96
[2017-12-28 14:20] VITALS: BP 130/69; PULSE 61; RESP 16; O2SAT 96
[2017-12-28 15:07] VITALS: BP 128/63
== END 2017-12-28 15:10 | disposition home or self-care (01) ==
LOC: PHED 12:06
DX: R56.9 Unspecified convulsions (principal); M25.551 Pain in right hip; F41.9 Anxiety disorder, unspecified; F32.9 Major depressive disorder, single episode, unspecified; K21.9 Gastro-esophageal reflux disease without esophagitis
CPT/HCPCS: 73501; 99283

== ENCOUNTER 2017-12-31 13:55 | Emergency (ER) | payer OTHER ==
[~2017-12-31] VITALS: Ht 157.5 cm; Wt 70.5 kg
[~2017-12-31 13:55] MED LIST changes: +GABA600T PO; +GABA800T PO; -IBUP200C PO; -NEUR100C PO; -TYLE325T PO
[2017-12-31 14:02] VITALS: BP 194/83; PULSE 59; RESP 16; TEMP 98.2; O2SAT 98
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
--- NOTE | 2017-12-31 15:39 | RADRPT ---
EXAM DATE: 12/31/2017 3:19 PM EDT AGE/SEX: 67 years / Female INDICATIONS: Right hip pain. Fell 3 days ago. CLINICAL DATA: This is the patient's initial encounter. Patient reports that signs and symptoms have been present for 3 days and indicates a pain score of 2/10. MEDICAL/SURGICAL HISTORY: Gastroesophageal reflux disease. Seizures. Pelvic fracture. Appendectom y. Cholecystectomy. RADIATION DOSE: 19.99 CTDI (mGy) COMPARISON: No prior exams available for comparison. TECHNIQUE: Multiple contiguous axial images were acquired using a multirow detector CT scanner witho ut contrast. Multiplanar reconstruction was performed in the sagittal and coronal planes. Using aut omated exposure control and adjustment of the mA and/or kV according to patient size, radiation dose was kept as low as reasonably achievable to obtain optimal diagnostic quality images. FINDINGS: There are old healed fractures of bilateral inferior pubic rami. There is no evidence for free fluid, mass, abscess formation, or any significant pathological adenopathy. There are no signs of divertic ulitis. CONCLUSION: No definite fracture is identified for technique. Electronically signed by: Lina Corral MD 12/31/2017 3:37 PM EDT
--- NOTE | 2017-12-31 15:51 | RADRPT ---
EXAM DATE: 12/31/2017 3:11 PM EDT AGE/SEX: 67 years / Female INDICATIONS: Left facial tenderness and swelling. CLINICAL DATA: This is the patient's initial encounter. Patient reports that signs and symptoms have been present for 2 days and indicates a pain score of 2/10. MEDICAL/SURGICAL HISTORY: Gastroesophageal reflux disease. Seizures. Pelvic fracture. Appende ctomy. Cholecystectomy. RADIATION DOSE: 29.75 CTDI (mGy) [place] [facility] [place]AST[place] 09/13/2012. . TECHNIQUE: Contiguous images in the axial and coronal planes were obtained using helical multirow de tector technique. Using automated exposure control and adjustment of the mA and/or kV according to p atient size, radiation dose was kept as low as reasonably achievable to obtain optimal diagnostic bailey lity images. FINDINGS: There are old healed fractures of the left second metacarpal and left maxilla with significant collap se and chronic opacification of the left maxillary sinus. There are no new or acute bony findings. There is no evidence of soft tissue mass or collection. There is no adenopathy in the visualized neck CONCLUSION: No acute findings. Electronically signed by: Anders Motley MD 12/31/2017 3:50 PM EDT
== END 2017-12-31 16:07 | disposition home or self-care (01) ==
LOC: PHEFT 13:55
DX: R51 Headache (principal); M25.551 Pain in right hip; W07.XXXA Fall from chair, initial encounter; Y92.238 Other place in hospital as the place of occurrence of the external cause; R56.9 Unspecified convulsions; F41.9 Anxiety disorder, unspecified; F32.9 Major depressive disorder, single episode, unspecified; K21.9 Gastro-esophageal reflux disease without esophagitis
CPT/HCPCS: 70486; 73700; 99283